=== PATIENT | female | born 1960 | race Caucasian/White ===

== ENCOUNTER 2022-07-26 12:07 | Emergency (ER) | payer MEDICAID ==
[~2022-07-26] VITALS: Ht 160 cm; Wt 52.6 kg
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
[2022-07-26] MEDS ORDERED: IBUP-1953 PO (12:56)
[2022-07-26] MEDS ORDERED: PANT40TA49 PO (12:56)
[2022-07-26] MEDS ORDERED: FOLI0.8T3 PO (12:56)
[2022-07-26] MEDS ORDERED: AMLO-212 PO (12:56)
[2022-07-26] MEDS ORDERED: DOCU100C36 PO (12:56)
[2022-07-26] MEDS ORDERED: LORA10TA7 PO (12:56)
--- NOTE | 2022-07-26 12:58 | NUR ---
[facility] [phone]
--- NOTE | 2022-07-26 12:59 | NUR ---
[facility]. [id number] [place] [facility] [id number]
[2022-07-26] MEDS ORDERED: LIDO28.310 TP (13:14)
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
--- NOTE | 2022-07-26 14:10 | NUR ---
Patient discharged to home in stable condition. Written and verbal after care instructions given. Patient verbalizes understanding of instruction. PATIENT PICKUP BY [employer] IN A STABLE CONDITION.
[2022-07-26 15:38] VITALS: BP 125/75
== END 2022-07-26 14:10 | disposition home health service (06) ==
LOC: ER 12:22
DX: K62.89 Other specified diseases of anus and rectum (principal); I10 Essential (primary) hypertension